=== PATIENT | female | born 1960 | race Caucasian/White ===

== ENCOUNTER 2025-03-23 13:11 | Emergency (ER) | payer OTHER, SELFPAY ==
[2025-03-23 13:13] VITALS: BP 128/79
[2025-03-23 13:47] VITALS: BP 143/83
[2025-03-23 14:00] VITALS: BP 139/77
[2025-03-23 14:07] VITALS: BMI 27.7
--- NOTE | 2025-03-23 14:28 | ED.GENMED ---
History of Present Illness
General
Chief Complaint: Dizziness
Source: patient
Exam Limitations: none
Time Seen by Provider: 03/23/25 14:13
Nursing documentation reviewed up to this point in time: agreed with
History of Present Illness
History of Present Illness:
Patient with history of chronic alcoholism, with last alcohol intake yesterday, along with hyponatremia, presents to ED secondary to dizziness and difficulty with ambulation over the past 3 weeks. Patient was evaluated by primary care physician
this afternoon and was referred to ED for further evaluation treatment, including potential imaging studies as well as blood work. At rest, while lying down, without any movement, patient states that she has no symptoms. Patient has noted over the
past 3 weeks, intermittent headache. Denies blurred vision. Denies loss of sensation or weakness. Denies loss of appetite. Denies fever or chills. Denies recent change in medications or diet. Denies previous history of similar symptoms.
Denies difficulty with hearing.
Review of Systems
Review of Systems
Allergies reviewed?: Yes
All Other Systems: ROS reviewed and negative except as documented in HPI and ROS
Constitutional: Reports no symptoms
EENT: Reports no symptoms
Respiratory: Reports no symptoms
Cardiac: Reports no symptoms
ABD/GI: Reports no symptoms
Musculoskeletal: Reports no symptoms
Skin: Reports no symptoms
Neurological: Reports dizzy and headache; Denies weakness
Phy Exam
Physical Exam
Physical Exam:
Physical Exam
General: no apparent distress, not acutely ill. afebrile
Head: nc/at. eomi. no nystagmus.
Neck: supple. no meningeal signs.
Heart: s1/s2 regular rate and rhythm
Lungs: no acute respiratory distress. clear bilaterally
Abdomen: normal bowel sounds. not tender.
Neuro: alert and oriented x 3. no focal neurological deficits
Skin: no rash
Psychiatric: well kept. interactive and cooperative
Extremities: no edema. no calf tenderness.
Course
Orders/Labs/Results
Orders:
Orders
03/23/25 14:25
CT Head W/o Iv Contrast Urgent
Comment:
Reason For Exam: dizziness
03/23/25 14:29
Thiamine Injection 100 mg IV NOW STA
03/23/25 14:48
Complete Blood Count/With Diff Urgent
Comprehensive Metabolic Panel Urgent
Magnesium Urgent
Phosphorus Urgent
TSH Urgent
Vitamin B1, Whole Blood [S] Urgent
03/23/25 15:40
Add On- LAB Urgent
Tests Added?: serum osm, urine sodium, urine osm
Abnormal Lab Results
03/23/25
14:48
RBC 3.45 L 10^6/uL
(4.20-5.40)
Hgb 10.5 L g/dL
(12.0-16.0)
Hct 31.1 L %
(37.0-47.0)
MPV 11.1 H fL
(7.4-10.4)
Absolute Neuts (auto) 6.7 H 10^3/uL
(1.4-6.5)
Absolute Monos (auto) 0.8 H 10^3/uL
(0.1-0.6)
Sodium 130 L mmol/L
(135-145)
BUN 19 H mg/dl
(7-17)
Total Protein 6.1 L g/dl
(6.3-8.2)
03/23/25 14:48
03/23/25 14:48
Vital Signs
Initial and Last Documented VS:
Initial Vital Signs
Temp Pulse Resp BP Pulse Ox
98.7 F 71 16 128/79 98
03/23/25 13:13 03/23/25 13:13 03/23/25 13:13 03/23/25 13:13 03/23/25 13:13
Last Documented Vital Signs
Temp Pulse Resp BP Pulse Ox
98.7 F 72 17 144/77 99
03/23/25 13:13 03/23/25 16:15 03/23/25 16:15 03/23/25 16:00 03/23/25 16:15
MDM/Problems Addressed
MDM/Problems Addressed:
Hyponatremia noted, likely chronic, rather than acute. Doubt etiology for patient's unstable gait, which also appears to be chronic, patient utilizes walker at baseline. In ED, during my evaluation, patient is able to ambulate with steady gait
with use of walker, which patient states that is her baseline.
CT head pending. Patient to be reassessed afterwards.
*Pulse Oximetry
SaO2: 98
Oxygen Mode of Delivery: Room air
Patient hypoxic: no
*Critical Care Note
Total Time (30-74mins, 75-104mins- exclusive of procedures): Not Applicable
ED Attending Note
-
Portions of this chart may have been created with voice recognition software.� Occasional wrong word or��sound alike� substitutions may have occurred due to the inherent limitations of voice recognition software.
Discharge Plan
Departure
Patient Disposition: Home (Routine Discharge)
Date of Disposition: 03/23/25
Time of Disposition: 17:44
Patient with high blood pressure during this ER visit?: Yes
Discharge Problem:
Dizziness
Instructions: Dizziness, BLOOD PRESSURE
Referrals:
Katrina Saini PA-C [Family Provider]
Activity Restrictions/Additional Instructions:
Follow-up with your primary care doctor. Your white blood cell count is normal. Hemoglobin is somewhat low at 10.5, sodium is 130 (slightly low), thyroid testing is normal. CAT scan of the brain showed no acute abnormality. Continue using your
walker. Return here if worse or other concerns.
Interventions
Interventions:
*Risk Screen - Suicide Last Done: 03/23/25 13:13
*Neglect/Abuse Screening Last Done: 03/23/25 13:13
*Nursing Disposition Last Done: 03/23/25 18:23
ED- Neurological Assessment Last Done: 03/23/25 14:08
ED- Cardiac Assessment Last Done: 03/23/25 14:08
ED Swallowing Screen Last Done: 03/23/25 14:08
Discharge Date and Time
Discharge Date/Time: 03/23/25 18:24
Print Language: CAMBODIAN
[2025-03-23 15:00] VITALS: BP 133/72
[2025-03-23 15:20] LABS: ALT (SGPT) < 10 U/L (0-35); AST (SGOT) 17 U/L (14-36); Albumin 3.5 g/dl (3.5-5.0); Alkaline Phosphatase 71 U/L (38-126); Blood Urea Nitrogen 19 mg/dl (7-17); Calcium 8.7 mg/dl (8.4-10.2); Carbon Dioxide 26 mmol/L (22-30); Chloride 100 mmol/L (98-107); Estimated Creatinine Clearance 76 ml/min; Glucose 86 mg/dl (70-99); Magnesium 2.1 mg/dl (1.6-2.3); Potassium 4.1 mmol/L (3.5-5.1); Sodium 130 mmol/L (135-145); Total Protein 6.1 g/dl (6.3-8.2); eGFR > 60.00
[2025-03-23 15:30] LABS: Hematocrit 31.1 % (37.0-47.0); Hemoglobin 10.5 g/dL (12.0-16.0); Mean Corp Hgb Conc. 33.8 g/dL (33.0-37.0); Mean Corpuscular Volume 90.1 fL (81.0-99.0); Nucleated Red Blood Cells % 0 %; Platelet Count 144 10^3/uL (130-400); Red Cell Dist. Width 13.0 % (11.5-14.5)
[2025-03-23] MEDS: THIAMINE INJECTION 100 MG IV (15:41)
[2025-03-23 15:50] LABS: TSH 1.61 uIU/ml (0.47-4.68)
[2025-03-23 16:00] VITALS: BP 144/77
== END 2025-03-23 18:24 | disposition home or self-care (01) ==
LOC: EMR 13:11
PROVIDERS: EMERGENCY PHYSICIAN Emergency Medicine; FAMILY PHYSICIAN Physician Assistant
DX: R42 Dizziness and giddiness (principal); R51.9 Headache, unspecified; R26.81 Unsteadiness on feet; R03.0 Elevated blood-pressure reading, without diagnosis of hypertension; F31.9 Bipolar disorder, unspecified; F10.20 Alcohol dependence, uncomplicated; E87.1 Hypo-osmolality and hyponatremia; Z85.820 Personal history of malignant melanoma of skin
CPT/HCPCS: 99284; 96374; 70450; 80053; 83735; 84100; 84425; 84443; 85025